=== PATIENT | male | born 1985 | race Caucasian/White ===

== ENCOUNTER 2020-11-06 15:46 | Emergency (ER) | payer OTHER ==
[~2020-11-06] VITALS: Ht 195.6 cm; Wt 75.9 kg
[2020-11-06] MEDS ORDERED: ondansetron 4mg rapidly disintigrating tab PO ONE (16:50)
[2020-11-06] MEDS ORDERED: ketorolac trometh inj. 60 MG/2 ML VIAL IM ONE (16:50)
[2020-11-06] MEDS ORDERED: HYDROcodone/acetaminophen 5mg/325mg tablet PO ONE (16:50)
[2020-11-06 16:57] VITALS: BP 131/76
[2020-11-06] MEDS ORDERED: HYDR-3965 PO (16:57)
== END 2020-11-06 17:26 | disposition home or self-care (01) ==
LOC: ER 15:46
DX: S42.031A Displaced fracture of lateral end of right clavicle, initial encounter for closed fracture (principal); S40.211A Abrasion of right shoulder, initial encounter; Z79.899 Other long term (current) drug therapy; W17.89XA Other fall from one level to another, initial encounter; Y93.55 Activity, bike riding; Y92.828 Other wilderness area as the place of occurrence of the external cause; Y99.8 Other external cause status
CPT/HCPCS: 29105; 73030; 96372; 99283; J1885